=== PATIENT | male | born 2000 | race African-American/Black ===

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

== ENCOUNTER 2020-10-24 02:27 | Emergency (ER) | payer OTHER ==
[~2020-10-24] VITALS: Ht 185.4 cm; Wt 77.0 kg
[2020-10-24] MEDS ORDERED: IBUPROFEN 600MG TABLET PO ONE (03:00)
[2020-10-24] MEDS ORDERED: IBUP-2029 MT (04:30)
[2020-10-24 04:50] VITALS: BP 147/74
== END 2020-10-24 05:02 | disposition home or self-care (01) ==
LOC: ER 02:27
DX: S43.402A Unspecified sprain of left shoulder joint, initial encounter (principal); S50.02XA Contusion of left elbow, initial encounter; S60.221A Contusion of right hand, initial encounter; Z98.890 Other specified postprocedural states; W01.0XXA Fall on same level from slipping, tripping and stumbling without subsequent striking against object, initial encounter; Y93.89 Activity, other specified; Y92.89 Other specified places as the place of occurrence of the external cause; Y99.8 Other external cause status
CPT/HCPCS: 73030; 73060; 73080; 73130; 99284

== ENCOUNTER 2020-10-29 14:19 | Emergency (ER) | payer OTHER ==
[~2020-10-29] VITALS: Ht 185.4 cm; Wt 77.0 kg
[~2020-10-29 14:19] MED LIST: IBUP-2029 MT
[2020-10-29] MEDS ORDERED: KETOROLAC 30MG/ML VIAL IM ONE (15:15)
[2020-10-29] MEDS ORDERED: CYCL10TA7 MT (15:17)
[2020-10-29 15:29] VITALS: BP 128/63
== END 2020-10-29 15:41 | disposition home or self-care (01) ==
LOC: ER 14:19
DX: S16.1XXA Strain of muscle, fascia and tendon at neck level, initial encounter (principal); S46.812A Strain of other muscles, fascia and tendons at shoulder and upper arm level, left arm, initial encounter; W10.8XXA Fall (on) (from) other stairs and steps, initial encounter; Y93.89 Activity, other specified; Y92.018 Other place in single-family (private) house as the place of occurrence of the external cause
CPT/HCPCS: 96372; 99283; J1885; A4565

== ENCOUNTER 2024-02-21 17:20 | Emergency (ER) | payer OTHER ==
[~2024-02-21] VITALS: Ht 185.4 cm; Wt 78.0 kg
[~2024-02-21 17:20] MED LIST changes: +CYCL10TA21 MT
[2024-02-21 17:37] VITALS: O2SAT 100
[2024-02-21 17:46] VITALS: BP 139/71; PULSE 62; RESP 16; TEMP 98; O2SAT 99
== END 2024-02-21 20:00 | disposition left against medical advice (07) ==
LOC: ER 17:20
DX: S01.111A Laceration without foreign body of right eyelid and periocular area, initial encounter (principal); Z53.21 Procedure and treatment not carried out due to patient leaving prior to being seen by health care provider; W45.8XXA Other foreign body or object entering through skin, initial encounter; Y93.89 Activity, other specified; Y92.89 Other specified places as the place of occurrence of the external cause; Y99.8 Other external cause status